=== PATIENT | male | born 1990 | race Caucasian/White ===

== ENCOUNTER 2017-02-06 19:48 | Emergency (ER) | payer OTHER ==
[~2017-02-06] VITALS: Ht 162.6 cm; Wt 61.2 kg
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
--- NOTE | 2017-02-06 20:10 | NUR ---
dr salvador at bedside for eval.
--- NOTE | 2017-02-06 20:15 | NUR ---
chemistry lab instructor at bedside for blood draw.
[2017-02-06 20:21] LABS: BASOPHILS # (AUTO) 0.1 /CMM (0.0-0.2); BASOPHILS % (AUTO) 0.6 % (0.0-2.0); EOSINOPHILS # (AUTO) 0.2 /CMM (0.0-0.7); EOSINOPHILS % (AUTO) 2.1 % (0.0-6.0); HEMATOCRIT 41 % (39-51); HEMOGLOBIN 13.8 g/dL (13.5-17.5); LYMPHOCYTES # (AUTO) 3.3 /CMM (0.8-4.8); LYMPHOCYTES % (AUTO) 32.4 % (20.0-44.0); MEAN CORPUSCULAR HEMOGLOBIN 31 PG (26.0-33.0); MEAN CORPUSCULAR HGB CONC 34 g/dl (31.0-36.0); MEAN CORPUSCULAR VOLUME 91 fL (80-96); MONOCYTES # (AUTO) 0.9 /CMM (0.1-1.30); MONOCYTES % (AUTO) 8.8 % (2.0-12.0); NEUTROPHILS # (AUTO) 5.6 /CMM (1.8-8.9); NEUTROPHILS % (AUTO) 56.1 % (43.0-81.0); PLATELET COUNT (AUTO) 328 /CMM (150-450); RDW COEFFICIENT OF VARIATION 11.6 (11.5-15.0); RED BLOOD CELL COUNT(AUTO) 4.52 MIL/uL (4.5-6.0); WHITE BLOOD COUNT (AUTO) 10.1 K/uL (4.3-11.0)
[2017-02-06 20:27] LABS: APPEARANCE,URINE Clear (CLEAR); BILIRUBIN,URINE Negative (NEGATIVE); BLOOD, URINE Negative Ery/uL (NEGATIVE); COLOR,URINE Yellow (YELLOW); KETONES,URINE 15 (NEGATIVE); LEUKOCYTE ESTERASE ,URINE Trace (NEGATIVE); NITRITE, URINE Negative (NEGATIVE); PH,URINE 5.5 (5.0-8.0); PROTEIN,URINE Negative (NEGATIVE); UGLUCOSE Negative (NEGATIVE); UROBILINOGEN,URINE 0.2 EU/dL (0.2)
[2017-02-06 20:30] LABS: CARBON DIOXIDE 31 mmol/L (21-32); CHLORIDE 103 mmol/L (98-107); CREATININE 0.8 mg/dL (0.6-1.3); GLUCOSE 91 mg/dL (74-106); POTASSIUM 4.1 mmol/L (3.5-5.1); SODIUM SERUM 140 mmol/L (136-145); UREA NITROGEN, BLOOD 10 mg/dL (7-18)
--- NOTE | 2017-02-06 20:33 | NUR ---
jennifer rn at bedside for psych eval.
[2017-02-06 20:40] LABS: BACTERIA,URINE Rare /HPF (None Seen); RBC,URINE 0-2 /HPF (0-2); WBC,URINE 2-3/HPF /HPF (0-3)
[2017-02-06 20:41] LABS: SQUAMOUS EPITHELIAL CELL,UR Few /HPF (None Seen); URINE AMORPHOUS URATE Few /HPF (None Seen)
[2017-02-06 20:44] LABS: ALANINE AMINOTRANSFERASE 20 U/L (12-78); ALBUMIN 3.7 g/dL (3.4-5.0); ALCOHOL, BLOOD < 3 mg/dL (0-0); ALKALINE PHOSPHATASE 95 U/L (46-116); ASPARTATE AMINOTRANSFERASE 14 U/L (15-37); BILIRUBIN,TOTAL 0.2 mg/dL (0.2-1.0); TOTAL PROTEIN, SERUM 6.9 g/dL (6.4-8.2)
[2017-02-06 20:45] LABS: ACETAMINOPHEN 0 ug/ml (10-30); SALICYLATE 1.9 mg/dL (2.8-20.0)
--- NOTE | 2017-02-06 21:15 | NUR ---
[facility] CALLED FOR PICKUP, ETA 1 HOUR
--- NOTE | 2017-02-06 22:48 | NUR ---
[facility] AT BEDSIDE FOR PT TRANSFER TO [place]. STABLE CONDITION.
[2017-02-06 22:49] VITALS: BP 146/90
== END 2017-02-06 22:49 ==
LOC: ER 19:52
DX: R45.851 Suicidal ideations (principal); F19.10 Other psychoactive substance abuse, uncomplicated; F31.9 Bipolar disorder, unspecified; F17.200 Nicotine dependence, unspecified, uncomplicated; Z59.0 Homelessness
CPT/HCPCS: 36415; 80048; 80076; 80305; 80329; 81001; 85025; 99285; A4606; G0480 ×2; Z7610; 81000-TC

== ENCOUNTER 2017-05-17 11:46 | Emergency (ER) | payer OTHER ==
[~2017-05-17] VITALS: Ht 162.6 cm; Wt 63.5 kg
--- NOTE | 2017-05-17 12:00 | NUR ---
OFFICERS AT BS. PT ON HANDCUFFS. VSS. NAD NOTED. SEEN BY MD FOR EVAL. SAFETY AND COMFORT MEASURES PROVIDED. WILL MONITOR.
--- NOTE | 2017-05-17 12:50 | NUR ---
Patient discharged to home in stable condition. Written and verbal after care instructions given. Patient verbalizes understanding of instruction.
[2017-05-17] MEDS ORDERED: IBUPROFEN 600 MG TABLET PO ONE ×2 (12:53→13:00)
[2017-05-17 13:00] VITALS: BP 119/68
--- NOTE | 2017-05-17 13:00 | NUR ---
PT NOTED TRIED TO BITE OFFICER AND ASSISTED TO THE GROUND. NO HEAD TRAUMA NOTED. PT AWAKE, ALERT AND ORIENTED X 4. REMAINS ON HANDCUFFS.
== END 2017-05-17 14:19 | disposition home or self-care (01) ==
LOC: ER 11:52
DX: S00.83XA Contusion of other part of head, initial encounter (principal); F15.10 Other stimulant abuse, uncomplicated; Z91.19 Patient's noncompliance with other medical treatment and regimen; F31.9 Bipolar disorder, unspecified; F17.200 Nicotine dependence, unspecified, uncomplicated; Y04.2XXA Assault by strike against or bumped into by another person, initial encounter; Y93.89 Activity, other specified; Y92.89 Other specified places as the place of occurrence of the external cause; Y99.8 Other external cause status
CPT/HCPCS: 99283; A4606; Z7610

== ENCOUNTER 2017-05-17 17:25 | Emergency (ER) | payer SELFPAY ==
[~2017-05-17] VITALS: Ht 162.6 cm; Wt 69.9 kg
[2017-05-17 17:28] VITALS: BP 132/63
== END 2017-05-17 17:52 | disposition home or self-care (01) ==
LOC: ER 17:28
DX: S00.83XA Contusion of other part of head, initial encounter (principal); F19.10 Other psychoactive substance abuse, uncomplicated; F31.9 Bipolar disorder, unspecified; F17.200 Nicotine dependence, unspecified, uncomplicated; F60.5 Obsessive-compulsive personality disorder; Y04.2XXA Assault by strike against or bumped into by another person, initial encounter; Y93.89 Activity, other specified; Y92.89 Other specified places as the place of occurrence of the external cause; Y99.8 Other external cause status
CPT/HCPCS: 99281; A4606; Z7610; Z7502

== ENCOUNTER 2017-05-31 18:10 | Emergency (ER) | payer OTHER ==
[~2017-05-31] VITALS: Ht 167.6 cm; Wt 74.8 kg
--- NOTE | 2017-05-31 18:20 | NUR ---
BB FATHER: PSYCHE EVAL, SI, NAD NOTED, VSS, RESP EVEN AND UNLABORED, PT PUT ON MONITOR, WAITING FOR MD PIERRE.
[2017-05-31 19:43] LABS: APPEARANCE,URINE CLEAR (CLEAR); BILIRUBIN,URINE NEGATIVE (NEGATIVE); BLOOD, URINE NEGATIVE Ery/uL (NEGATIVE); COLOR,URINE YELLOW (YELLOW); KETONES,URINE NEGATIVE (NEGATIVE); LEUKOCYTE ESTERASE ,URINE NEGATIVE (NEGATIVE); NITRITE, URINE NEGATIVE (NEGATIVE); PROTEIN,URINE NEGATIVE (NEGATIVE); UGLUCOSE NEGATIVE (NEGATIVE); UROBILINOGEN,URINE 0.2 EU/dL (0.2)
[2017-05-31 20:00] LABS: BASOPHILS # (AUTO) 0.3 /CMM (0.0-0.2); BASOPHILS % (AUTO) 1.9 % (0.0-2.0); EOSINOPHILS % (AUTO) 0.2 % (0.0-6.0); HEMATOCRIT 36 % (39-51); HEMOGLOBIN 12.7 g/dL (13.5-17.5); LYMPHOCYTES # (AUTO) 2.1 /CMM (0.8-4.8); LYMPHOCYTES % (AUTO) 12.5 % (20.0-44.0); MEAN CORPUSCULAR HEMOGLOBIN 30 PG (26.0-33.0); MEAN CORPUSCULAR HGB CONC 35 g/dl (31.0-36.0); MEAN CORPUSCULAR VOLUME 87 fL (80-96); MONOCYTES # (AUTO) 1.2 /CMM (0.1-1.30); MONOCYTES % (AUTO) 7.3 % (2.0-12.0); NEUTROPHILS % (AUTO) 78.1 % (43.0-81.0); PLATELET COUNT (AUTO) 359 /CMM (150-450); RED BLOOD CELL COUNT(AUTO) 4.19 MIL/uL (4.5-6.0); WHITE BLOOD COUNT (AUTO) 16.6 K/uL (4.3-11.0)
[2017-05-31 20:12] LABS: CALCIUM, SERUM 8.8 mg/dL (8.5-10.1); CARBON DIOXIDE 28 mmol/L (21-32); CHLORIDE 100 mmol/L (98-107); CREATININE 0.8 mg/dL (0.6-1.3); GLUCOSE 133 mg/dL (74-106); POTASSIUM 3.9 mmol/L (3.5-5.1); SODIUM SERUM 135 mmol/L (136-145); UREA NITROGEN, BLOOD 9 mg/dL (7-18)
[2017-05-31 20:18] LABS: ALANINE AMINOTRANSFERASE 27 U/L (12-78); ALBUMIN 3.2 g/dL (3.4-5.0); ALCOHOL, BLOOD < 3 mg/dL (0-0); ALKALINE PHOSPHATASE 98 U/L (46-116); ASPARTATE AMINOTRANSFERASE 17 U/L (15-37); BILIRUBIN,DIRECT 0.2 mg/dL (0.0-0.2); BILIRUBIN,TOTAL 0.9 mg/dL (0.2-1.0); TOTAL PROTEIN, SERUM 7.9 g/dL (6.4-8.2)
[2017-05-31 20:26] LABS: ACETAMINOPHEN 0 ug/ml (10-30); SALICYLATE 1.7 mg/dL (2.8-20.0)
--- NOTE | 2017-05-31 20:40 | NUR ---
PINKY AT BS
[2017-05-31 21:18] LABS: LYMPHOCYTES % (MANUAL) 9 % (16-48); MONOCYTES % (MANUAL) 4 % (0-11.0); NEUTROPHILS % (MANUAL) 87 (42-76)
--- NOTE | 2017-05-31 21:25 | NUR ---
PT'S FATHER'S NUMBER [phone]
--- NOTE | 2017-05-31 22:41 | NUR ---
MEE HANNAH 2HR. TRANSFER# [id number]
--- NOTE | 2017-05-31 23:25 | NUR ---
GIVE REPORT TO MARIELLA.
[2017-05-31 23:26] VITALS: BP 118/65
--- NOTE | 2017-05-31 23:28 | NUR ---
Patient is resting comfortably in bed with eyes closed. Easily aroused. VSS
== END 2017-06-01 00:54 ==
LOC: ER 18:11
DX: F39 Unspecified mood [affective] disorder (principal); F15.10 Other stimulant abuse, uncomplicated; F12.10 Cannabis abuse, uncomplicated; F31.9 Bipolar disorder, unspecified; F60.5 Obsessive-compulsive personality disorder; F17.200 Nicotine dependence, unspecified, uncomplicated
CPT/HCPCS: 36415; 80048; 80076; 80305; 80329; 81001; 85025; 99285; A4606; G0480 ×2; Z7610; 81000-TC

== ENCOUNTER 2017-07-05 13:55 | Emergency (ER) | payer OTHER ==
[~2017-07-05] VITALS: Ht 162.6 cm; Wt 63.5 kg
[2017-07-05 15:10] LABS: BASOPHILS # (AUTO) 0.1 /CMM (0.0-0.2); BASOPHILS % (AUTO) 0.7 % (0.0-2.0); EOSINOPHILS % (AUTO) 2.1 % (0.0-6.0); HEMATOCRIT 35 % (39-51); HEMOGLOBIN 12.6 g/dL (13.5-17.5); LYMPHOCYTES # (AUTO) 1.3 /CMM (0.8-4.8); LYMPHOCYTES % (AUTO) 16.2 % (20.0-44.0); MEAN CORPUSCULAR HGB CONC 36 g/dl (31.0-36.0); MEAN CORPUSCULAR VOLUME 87 fL (80-96); MONOCYTES # (AUTO) 0.7 /CMM (0.1-1.30); NEUTROPHILS # (AUTO) 5.7 /CMM (1.8-8.9); PLATELET COUNT (AUTO) 325 /CMM (150-450); RDW COEFFICIENT OF VARIATION 14.5 (11.5-15.0); RED BLOOD CELL COUNT(AUTO) 4.05 MIL/uL (4.5-6.0)
[2017-07-05 15:14] LABS: CALCIUM, SERUM 8.7 mg/dL (8.5-10.1); CARBON DIOXIDE 30 mmol/L (21-32); CHLORIDE 104 mmol/L (98-107); CREATININE 0.8 mg/dL (0.6-1.3); GLUCOSE 121 mg/dL (74-106); POTASSIUM 4.2 mmol/L (3.5-5.1); SODIUM SERUM 139 mmol/L (136-145); UREA NITROGEN, BLOOD 13 mg/dL (7-18)
[2017-07-05 15:20] LABS: ACETAMINOPHEN 0 ug/ml (10-30); ALANINE AMINOTRANSFERASE 20 U/L (12-78); ALBUMIN 3.3 g/dL (3.4-5.0); ALCOHOL, BLOOD < 3 mg/dL (0-0); ALKALINE PHOSPHATASE 95 U/L (46-116); ASPARTATE AMINOTRANSFERASE 16 U/L (15-37); BILIRUBIN,DIRECT 0.1 mg/dL (0.0-0.2); BILIRUBIN,TOTAL 0.3 mg/dL (0.2-1.0); SALICYLATE 3.5 mg/dL (2.8-20.0); TOTAL PROTEIN, SERUM 7.4 g/dL (6.4-8.2)
[2017-07-05] MEDS ORDERED: LORAZEPAM INJ 2 MG/ML VIAL ONE (15:57)
[2017-07-05] MEDS ORDERED: WATER FOR INJECTION,STERILE 10 ML ONE (16:02)
[2017-07-05] MEDS ORDERED: ZIPRASIDONE MESYLATE 20 MG/VIAL VIAL IM ONE ×2 (16:02→16:30)
[2017-07-05 16:24] LABS: APPEARANCE,URINE Clear (CLEAR); BILIRUBIN,URINE Negative (NEGATIVE); BLOOD, URINE Negative Ery/uL (NEGATIVE); COLOR,URINE Dark (YELLOW); KETONES,URINE Negative (NEGATIVE); LEUKOCYTE ESTERASE ,URINE Negative (NEGATIVE); NITRITE, URINE Negative (NEGATIVE); PH,URINE 5.5 (5.0-8.0); PROTEIN,URINE Negative (NEGATIVE); UGLUCOSE Negative (NEGATIVE); UROBILINOGEN,URINE 0.2 EU/dL (0.2)
[2017-07-05] MEDS ORDERED: LORAZEPAM INJ 2 MG/ML VIAL IM ONE (16:30)
--- NOTE | 2017-07-05 22:30 | NUR ---
PT AWAKE IN [place]. NO SIGNS OF DISTRESS NOTED. PT VITAL SIGNS STABLE. PT DENIES SI/HI. DR CHEEMA NOTIFIED.
--- NOTE | 2017-07-06 02:20 | NUR ---
PT SLEEPING IN [facility] NO SIGNS OF DISTRESS NOTED. PT VITAL SIGNS STABLE. WILL CONT TO MONITOR PT.
--- NOTE | 2017-07-06 05:59 | NUR ---
PT OK TO DISCHARGE PER DR CHEEMA. PT DENIES SI/HI. REFERALLS WITH PATIENT. MEAL PROVIDED TO PT PRIOR TO DC. Patient discharged to home in stable condition. Written and verbal after care instructions given. Patient verbalizes understanding of instruction.Patient is awake and alert to self, day, and place. PT ambulatory with a steady gait
[2017-07-06 06:03] VITALS: BP 121/73
== END 2017-07-06 06:04 | disposition home or self-care (01) ==
LOC: ER 13:57
DX: R45.851 Suicidal ideations (principal); F15.20 Other stimulant dependence, uncomplicated; F31.9 Bipolar disorder, unspecified; F20.9 Schizophrenia, unspecified; F17.200 Nicotine dependence, unspecified, uncomplicated
CPT/HCPCS: 36415; 80048-TC; 80076-TC; 80305; 81000-TC; 85025-TC; G0480; J2060; J3486

== ENCOUNTER 2021-05-04 19:36 | Emergency (ER) | payer OTHER ==
[~2021-05-04] VITALS: Ht 170.2 cm; Wt 59.0 kg
--- NOTE | 2021-05-04 19:45 | NUR ---
[facility] 102 FOR OVERDOSE ON METH AND MARIJUANA. NO MEDS OR NARCAN GIVEN ERP IMPLEMENTATION CONSULTANT. PT ALERT AND ORIENTED X3 ON EVAL BREATHIONG EVEN AND UNLABORED. PLACED ON MONITOR AND ALL V/S STABLE.
[2021-05-04] MEDS ORDERED: NALO4SPR BNOSTRILS (21:13)
--- NOTE | 2021-05-05 02:10 | NUR ---
Patient discharged to home in stable condition. Written and verbal after care instructions given. Patient verbalizes understanding of instruction. Pt ambulated with steady gait.
[2021-05-05 02:30] VITALS: BP 139/87
== END 2021-05-05 02:31 | disposition home or self-care (01) ==
LOC: ER 19:37
DX: F15.10 Other stimulant abuse, uncomplicated (principal); F31.9 Bipolar disorder, unspecified; F20.9 Schizophrenia, unspecified; Z59.00 Homelessness unspecified